=== PATIENT | female | born 1985 | race African-American/Black ===

== ENCOUNTER 2022-10-13 12:14 | Emergency (ER) | payer MEDICAID, SELFPAY ==
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
[2022-10-13 12:25] VITALS: BP 125/89; BP 185/96; PULSE 102; PULSE 124; RESP 18; O2SAT 98; BMI 27.8
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
--- NOTE | 2022-10-13 12:55 | PC.NURSE ---
PT REFUSING ALL LABS, REFUSES ASSESSMENTS. STATES I JUST WANT TO GO HOME, I WANT TO BE IN MY OWN BED, I WILL BE OK . ASSOCIATE AT HER BEDSIDE STATES I WILL BE THERE TO TAKE CARE OF HER DR. VALENCIA AWARE.
== END 2022-10-13 13:14 | disposition left against medical advice (07) ==
PROVIDERS: Emergency Provider Emergency Medicine
DX: R56.9 Unspecified convulsions (principal)
CPT/HCPCS: 99282